=== PATIENT | male | born 1965 | race Two or more races ===

== ENCOUNTER 2021-09-02 13:03 | Inpatient (IN) | payer OTHER ==
[~2021-09-02] VITALS: Ht 170.2 cm; Wt 72.7 kg
[2021-09-02 13:54] LABS: GLUCOSE,POINT OF CARE 239 MG/DL (70-110)
[2021-09-02 14:54] LABS: BASOPHILS % (AUTO) 0.5 % (0.0-2.0); EOSINOPHILS % (AUTO) 2.4 % (1.0-6.0); HEMATOCRIT 44.1 % (41-53); HEMOGLOBIN 14.8 g/dL (13.5-17.5); LYMPHOCYTES # (AUTO) 1.7 K/uL (1.0-4.8); LYMPHOCYTES % (AUTO) 26.6 % (22.0-44.0); MEAN CORPUSCULAR HGB CONC 33.6 G/dL (31.0-37.0); MEAN CORPUSCULAR VOLUME 92 fL (80-100); MONOCYTES # (AUTO) 0.5 K/uL (0.1-1.0); MONOCYTES % (AUTO) 7.8 % (2.0-9.0); NEUTROPHILS # (AUTO) 3.9 K/uL (1.8-7.7); NEUTROPHILS % (AUTO) 62.7 % (40.0-70.0); PLATELET COUNT (AUTO) 294 K/uL (150-450); RED BLOOD CELL COUNT(AUTO) 4.77 MIL/uL (4.50-5.90); RED CELL DISTRIBUTION WIDTH 14.1 % (11.5-14.5)
[2021-09-02 15:00] LABS: COVID AG,FIA SOURCE NASOPHARYNGEAL
[2021-09-02 15:04] LABS: ANION GAP 4 mmol/L (8-16); CALCIUM, TOTAL 9.2 mg/dL (8.8-10.5); CARBON DIOXIDE 35 mmol/L (22-29); CHLORIDE 105 mmol/L (98-107); GLOMERULAR FILTR. RATE CALC > 60 mL/min (>60); GLUCOSE,RANDOM 114 mg/dL (70-110); POTASSIUM 3.7 mmol/L (3.5-5.1); SODIUM SERUM 144 mmol/L (136-145); UREA NITROGEN, BLOOD 11 mg/dL (7-18)
[2021-09-02 15:10] LABS: ALANINE AMINOTRANSFERASE 22 U/L (12-78); ALBUMIN 3.4 g/dL (3.4-5.0); ALKALINE PHOSPHATASE 79 U/L (46-116); ASPARTATE AMINOTRANSFERASE 14 U/L (15-37); BILIRUBIN,TOTAL 0.3 mg/dL (0.1-1.0)
[2021-09-02] MEDS ORDERED: ONDANSETRON HCL 4 MG/2 ML VIAL IVP PRN ×2 (15:45→16:15)
[2021-09-02] MEDS ORDERED: ACETAMINOPHEN 325 MG TABLET PO PRN ×2 (15:45→16:15)
[2021-09-02] MEDS ORDERED: DOCUSATE SODIUM 100 MG CAPSULE PO PRN (16:15)
[2021-09-02] MEDS ORDERED: ALBUTEROL SULFATE 2.5 MG/0.5 ML NEB SOLUTION NEB PRN (16:15)
[2021-09-02] MEDS ORDERED: 0.9% SODIUM CHLORIDE 10 ML SYRINGE IVP PRN (16:15)
[2021-09-02] MEDS ORDERED: BISACODYL 10 MG RECTAL RECTAL SUPPOSITORY PR PRN (16:15)
[2021-09-02] MEDS ORDERED: IPRATROPIUM BROMIDE 0.5 MG/2.5 ML NEB SOLUTION NEB PRN (16:15)
[2021-09-02 16:48] VITALS: BP 119/81
[2021-09-02] MEDS ORDERED: INFLUENZA VIRUS VACCINE QVS 2021-22 (6MO+)/PF 60 MCG/0.5 ML SYRINGE IM. ONE (18:00)
[2021-09-02 19:50] VITALS: BP 133/79
[2021-09-02] MEDS: FAMOTIDINE 20 MG TABLET PO SCH (19:50)
[2021-09-02] MEDS ORDERED: 0.9% SODIUM CHLORIDE 5 ML NEB SOLUTION NEB ONE (20:17)
[2021-09-03 04:27] VITALS: BP 127/81
[2021-09-03 06:31] LABS: BASOPHILS % (AUTO) 0.6 % (0.0-2.0); EOSINOPHILS % (AUTO) 4.1 % (1.0-6.0); HEMATOCRIT 41.9 % (41-53); HEMOGLOBIN 14.3 g/dL (13.5-17.5); LYMPHOCYTES # (AUTO) 2.2 K/uL (1.0-4.8); LYMPHOCYTES % (AUTO) 39.2 % (22.0-44.0); MEAN CORPUSCULAR HEMOGLOBIN 31.2 pg (26.0-34.0); MEAN CORPUSCULAR HGB CONC 34.1 G/dL (31.0-37.0); MEAN CORPUSCULAR VOLUME 92 fL (80-100); MONOCYTES # (AUTO) 0.4 K/uL (0.1-1.0); MONOCYTES % (AUTO) 7.5 % (2.0-9.0); NEUTROPHILS # (AUTO) 2.8 K/uL (1.8-7.7); NEUTROPHILS % (AUTO) 48.6 % (40.0-70.0); PLATELET COUNT (AUTO) 271 K/uL (150-450); RED BLOOD CELL COUNT(AUTO) 4.58 MIL/uL (4.50-5.90); RED CELL DISTRIBUTION WIDTH 13.8 % (11.5-14.5)
[2021-09-03 07:18] LABS: ALANINE AMINOTRANSFERASE 17 U/L (12-78); ALBUMIN 3.1 g/dL (3.4-5.0); ALKALINE PHOSPHATASE 74 U/L (46-116); ANION GAP 3 mmol/L (8-16); ASPARTATE AMINOTRANSFERASE 14 U/L (15-37); BILIRUBIN,TOTAL 0.4 mg/dL (0.1-1.0); CALCIUM, TOTAL 8.8 mg/dL (8.8-10.5); CARBON DIOXIDE 28 mmol/L (22-29); CHLORIDE 106 mmol/L (98-107); CREATININE 0.88 mg/dL (0.60-1.30); GLOMERULAR FILTR. RATE CALC > 60 mL/min (>60); GLUCOSE,RANDOM 88 mg/dL (70-110); POTASSIUM 3.7 mmol/L (3.5-5.1); SODIUM SERUM 137 mmol/L (136-145); TOTAL PROTEIN, SERUM 6.4 g/dL (6.4-8.2); UREA NITROGEN, BLOOD 12 mg/dL (7-18)
[2021-09-03 07:36] VITALS: BP 100/78
[2021-09-03] MEDS: FAMOTIDINE 20 MG TABLET PO SCH ×2 (09:52→22:00)
[2021-09-03 15:22] VITALS: BP 124/77
[2021-09-03 19:39] VITALS: BP 110/81
[2021-09-03] MEDS ORDERED: SODIUM CHLORIDE 3% 15 ML NEB SOLUTION NEB ONE (19:50)
[2021-09-03] MEDS ORDERED: 0.9% SODIUM CHLORIDE 5 ML NEB SOLUTION NEB ONE (20:06)
[2021-09-04 04:55] VITALS: BP 101/66
[2021-09-04 08:00] VITALS: BP 110/69
[2021-09-04] MEDS: FAMOTIDINE 20 MG TABLET PO SCH ×2 (08:43→21:27)
[2021-09-04 19:52] VITALS: BP 116/89
[2021-09-05 04:53] VITALS: BP 122/77
[2021-09-05 08:00] VITALS: BP 108/73
[2021-09-05] MEDS: FAMOTIDINE 20 MG TABLET PO SCH ×2 (08:43→20:30)
[2021-09-05 13:06] LABS: QUANTIFERON, TB GOLD PLUS Positive (Negative)
[2021-09-05 20:20] VITALS: BP 118/73
[2021-09-05] MEDS: MELATONIN 3 MG TABLET PO PRN (23:34)
[2021-09-06 04:32] VITALS: BP 118/82
[2021-09-06 05:07] LABS: HIV 1-2 SCREEN 4TH GEN W/RFLX Non Reactive (Non Reactive)
[2021-09-06 07:57] VITALS: BP 103/65
[2021-09-06] MEDS: FAMOTIDINE 20 MG TABLET PO SCH ×2 (08:50→20:56)
[2021-09-06 15:53] VITALS: BP 112/69
[2021-09-06 19:37] VITALS: BP 138/77
[2021-09-06] MEDS: MELATONIN 3 MG TABLET PO PRN (20:56)
[2021-09-07 07:59] VITALS: BP 129/64
[2021-09-07] MEDS: FAMOTIDINE 20 MG TABLET PO SCH ×2 (08:24→20:10)
[2021-09-07 20:00] VITALS: BP 119/83
[2021-09-07] MEDS: MELATONIN 3 MG TABLET PO PRN (20:18)
[2021-09-08 04:45] VITALS: BP 132/83
[2021-09-08 08:00] VITALS: BP 104/73
[2021-09-08] MEDS: FAMOTIDINE 20 MG TABLET PO SCH ×2 (08:48→20:02)
[2021-09-08 19:12] VITALS: BP 127/87
[2021-09-08] MEDS: MELATONIN 3 MG TABLET PO PRN (20:02)
[2021-09-09 07:45] VITALS: BP 111/77
[2021-09-09] MEDS: FAMOTIDINE 20 MG TABLET PO SCH ×2 (08:10→19:55)
[2021-09-09] MEDS: PYRIDOXINE HCL 50 MG TABLET PO SCH (12:34)
[2021-09-09] MEDS: RIFAMPIN 300 MG CAPSULE PO SCH (12:34)
[2021-09-09] MEDS: ISONIAZID 300 MG TABLET PO SCH (12:34)
[2021-09-09] MEDS: PYRAZINAMIDE 500 MG TABLET PO SCH (12:35)
[2021-09-09] MEDS: ETHAMBUTOL HCL 400 MG TABLET PO SCH (12:36)
[2021-09-09 16:03] VITALS: BP 116/63
[2021-09-09] MEDS: MELATONIN 3 MG TABLET PO PRN (19:56)
[2021-09-09 20:32] VITALS: BP 128/70
[2021-09-10] MEDS: ZOLPIDEM TARTRATE 5 MG TABLET PO PRN (00:02)
[2021-09-10 05:37] VITALS: BP 120/74
[2021-09-10] MEDS: ISONIAZID 300 MG TABLET PO SCH (08:27)
[2021-09-10] MEDS: PYRAZINAMIDE 500 MG TABLET PO SCH (08:27)
[2021-09-10] MEDS: RIFAMPIN 300 MG CAPSULE PO SCH (08:27)
[2021-09-10] MEDS: ETHAMBUTOL HCL 400 MG TABLET PO SCH (08:29)
[2021-09-10] MEDS: FAMOTIDINE 20 MG TABLET PO SCH ×2 (08:30→20:02)
[2021-09-10] MEDS: PYRIDOXINE HCL 50 MG TABLET PO SCH (08:30)
[2021-09-10 19:26] VITALS: BP 129/76
[2021-09-10] MEDS: MELATONIN 3 MG TABLET PO PRN (20:01)
[2021-09-11 07:35] VITALS: BP 110/61
[2021-09-11] MEDS: RIFAMPIN 300 MG CAPSULE PO SCH (07:54)
[2021-09-11] MEDS: PYRAZINAMIDE 500 MG TABLET PO SCH (07:54)
[2021-09-11] MEDS: ISONIAZID 300 MG TABLET PO SCH (07:55)
[2021-09-11] MEDS: PYRIDOXINE HCL 50 MG TABLET PO SCH (07:55)
[2021-09-11] MEDS: FAMOTIDINE 20 MG TABLET PO SCH ×2 (07:55→20:08)
[2021-09-11] MEDS: ETHAMBUTOL HCL 400 MG TABLET PO SCH (07:56)
[2021-09-11 19:35] VITALS: BP 120/87
[2021-09-11] MEDS: ZOLPIDEM TARTRATE 5 MG TABLET PO PRN (20:08)
[2021-09-12 05:30] VITALS: BP 105/72
[2021-09-12] MEDS: ISONIAZID 300 MG TABLET PO SCH (08:12)
[2021-09-12] MEDS: RIFAMPIN 300 MG CAPSULE PO SCH (08:12)
[2021-09-12] MEDS: PYRIDOXINE HCL 50 MG TABLET PO SCH (08:12)
[2021-09-12] MEDS: ETHAMBUTOL HCL 400 MG TABLET PO SCH (08:13)
[2021-09-12] MEDS: PYRAZINAMIDE 500 MG TABLET PO SCH (08:13)
[2021-09-12] MEDS: FAMOTIDINE 20 MG TABLET PO SCH ×2 (08:13→20:20)
[2021-09-12 08:32] VITALS: BP 115/74
[2021-09-12 19:09] VITALS: BP 119/78
[2021-09-12] MEDS: MELATONIN 3 MG TABLET PO PRN (20:20)
[2021-09-13 03:51] VITALS: BP 117/78
[2021-09-13 06:13] LABS: BASOPHILS % (AUTO) 0.8 % (0.0-2.0); EOSINOPHILS % (AUTO) 5.3 % (1.0-6.0); HEMATOCRIT 42.4 % (41-53); HEMOGLOBIN 14.9 g/dL (13.5-17.5); LYMPHOCYTES # (AUTO) 2.1 K/uL (1.0-4.8); LYMPHOCYTES % (AUTO) 37.6 % (22.0-44.0); MEAN CORPUSCULAR HEMOGLOBIN 31.7 pg (26.0-34.0); MEAN CORPUSCULAR HGB CONC 35.2 G/dL (31.0-37.0); MEAN CORPUSCULAR VOLUME 90 fL (80-100); MONOCYTES # (AUTO) 0.6 K/uL (0.1-1.0); MONOCYTES % (AUTO) 11.5 % (2.0-9.0); NEUTROPHILS # (AUTO) 2.5 K/uL (1.8-7.7); NEUTROPHILS % (AUTO) 44.8 % (40.0-70.0); PLATELET COUNT (AUTO) 294 K/uL (150-450); RED CELL DISTRIBUTION WIDTH 13.8 % (11.5-14.5)
[2021-09-13 07:04] LABS: ALANINE AMINOTRANSFERASE 29 U/L (12-78); ALBUMIN 3.2 g/dL (3.4-5.0); ALKALINE PHOSPHATASE 86 U/L (46-116); ANION GAP 6 mmol/L (8-16); ASPARTATE AMINOTRANSFERASE 16 U/L (15-37); BILIRUBIN,TOTAL 0.2 mg/dL (0.1-1.0); CALCIUM, TOTAL 9.2 mg/dL (8.8-10.5); CARBON DIOXIDE 31 mmol/L (22-29); CHLORIDE 104 mmol/L (98-107); CREATININE 1.13 mg/dL (0.60-1.30); GLOMERULAR FILTR. RATE CALC > 60 mL/min (>60); GLUCOSE,RANDOM 88 mg/dL (70-110); POTASSIUM 4.4 mmol/L (3.5-5.1); SODIUM SERUM 141 mmol/L (136-145); TOTAL PROTEIN, SERUM 6.8 g/dL (6.4-8.2); UREA NITROGEN, BLOOD 25 mg/dL (7-18)
[2021-09-13 08:35] VITALS: BP 112/63
[2021-09-13] MEDS: ISONIAZID 300 MG TABLET PO SCH (08:49)
[2021-09-13] MEDS: FAMOTIDINE 20 MG TABLET PO SCH (08:49)
[2021-09-13] MEDS: PYRAZINAMIDE 500 MG TABLET PO SCH (08:49)
[2021-09-13] MEDS: PYRIDOXINE HCL 50 MG TABLET PO SCH (08:49)
[2021-09-13] MEDS: RIFAMPIN 300 MG CAPSULE PO SCH (08:50)
[2021-09-13] MEDS: ETHAMBUTOL HCL 400 MG TABLET PO SCH (08:52)
[2021-09-13] MEDS ORDERED: ETHA400T33 PO (13:29)
[2021-09-13] MEDS ORDERED: ISON300 PO (13:29)
[2021-09-13] MEDS ORDERED: PYRA500 PO (13:31)
[2021-09-13] MEDS ORDERED: PYRI25TA4 PO ×2 (13:32→13:34)
[2021-09-13] MEDS ORDERED: RIFA300 PO (13:35)
[2021-09-13] MEDS ORDERED: FAMO20 PO (13:36)
== END 2021-09-13 14:10 | DRG 192 ==
LOC: EMS 13:03 → 6S 15:42
PROVIDERS: ADMIT Internal Medicine; ATTEND Internal Medicine
DX: J47.9 Bronchiectasis, uncomplicated (principal); Z20.822 Contact with and (suspected) exposure to COVID-19; R91.8 Other nonspecific abnormal finding of lung field; Z86.11 Personal history of tuberculosis
CPT/HCPCS: 71250; 80053; 82962; 84145; 85025; 86480; 87015; 87206; 87389; 87556; 94640; 94799; 99285; 36415-L1; 36415-TC; J7613